=== PATIENT | male | born 1995 | race Native Hawaiian/Other Pacific Islander ===

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

== ENCOUNTER 2021-09-18 13:58 | Outpatient (CLI) | payer OTHER ==
[~2021-09-18 13:58] MED LIST: antibiotic OT
== END 2021-09-18 19:35 | disposition home or self-care (01) ==
LOC: RAD 13:58
PROVIDERS: ATTEND Nurse Practitioner Family
DX: N50.811 Right testicular pain (principal)